=== PATIENT | male | born 1955 | race Caucasian/White ===

== ENCOUNTER 2017-03-23 07:09 | Outpatient (CLI) | payer OTHER ==
[~2017-03-23] VITALS: Ht 172.7 cm; Wt 54.4 kg
[~2017-03-23 07:09] MED LIST: ALLO100T PO; ATEN25TA PO; LISI-538 PO; ONETAB32 PO; PRIL20TA2 PO; SIMV40TA2 PO; VITA100L PO; VITA400C28 PO; ZOCO20TA PO
[2017-03-23] MEDS ORDERED: NS 1,000 ML IV ONE (07:15)
[2017-03-23] MEDS ORDERED: fentaNYL 100 MCG/2 ML INJECTION (J3010) As Ordered ONE (07:54)
[2017-03-23] MEDS ORDERED: LIDOCAINE 2% INJ 100 MG/5 ML SDV (FOR ANES.) As Ordered ONE (08:05)
[2017-03-23] MEDS ORDERED: PROPOFOL 200 MG/20 ML VIAL As Ordered ONE ×2 (08:05→08:27)
--- NOTE | 2017-03-23 08:38 | ROOR ---
Patient Name: Eric Barrios Procedure Date: 03/23/2017 8:06 AM Date of : 1955 Age: 61 Room: [facility] Gender: Male Note Status: Finalized Procedure: Upper GI endoscopy Indications: Suspected gastro-esophageal reflux disease Providers: Dayday Cisneros DO Referring MD: KITTY MONSALVE DO Requesting Provider: Medicines: Propofol per Anesthesia Complications: No immediate complications. Procedure: Pre-Anesthesia Assessment: - Prior to the procedure, a History and Physical was performed, and patient medications and allergies were reviewed. The patient is competent. The risks and benefits of the procedure and the sedation options and risks were discussed with the patient. All questions were answered and informed consent was obtained. Patient identification and proposed procedure were verified by the physician, the nurse, the anesthesiologist and the mold tooling technician in the endoscopy suite. Mental Status Examination: alert and oriented. Airway Examination: normal oropharyngeal airway and neck mobility. Respiratory Examination: clear to auscultation. CV Examination: normal. Prophylactic Antibiotics: The patient does not require prophylactic antibiotics. Prior Anticoagulants: The patient has taken no previous anticoagulant or antiplatelet agents. ASA Grade Assessment: II - A patient with mild systemic disease. After reviewing the risks and benefits, the patient was deemed in satisfactory condition to undergo the procedure. The anesthesia plan was to use monitored anesthesia care (MAC). Immediately prior to administration of medications, the patient was re-assessed for adequacy to receive sedatives. The heart rate, respiratory rate, oxygen saturations, blood pressure, adequacy of pulmonary ventilation, and response to care were monitored throughout the procedure. The physical status of the patient was re-assessed after the procedure. The Endoscope was introduced through the mouth, and advanced to the second part of duodenum. The upper GI endoscopy was accomplished without difficulty. The patient tolerated the procedure well. Findings: Multiple less than 5 mm pedunculated polyps with no bleeding and no stigmata of recent bleeding were found in the gastric body. The polyp was removed with a jumbo cold forceps. Resection and retrieval were complete. Estimated blood loss was minimal. A few 25 mm sessile polyps with no bleeding and no stigmata of recent bleeding were found in the prepyloric region of the stomach. Biopsies were taken with a cold forceps for histology. Estimated blood loss was minimal. Diffuse mild inflammation characterized by congestion (edema) and erythema was found in the prepyloric region of the stomach. Biopsies were taken with a cold forceps for histology. Impression: - Multiple gastric polyps. Resected and retrieved. - A few gastric polyps. Biopsied. - Gastritis. Biopsied. Recommendation: - Patient has a contact number available for emergencies. The signs and symptoms of potential delayed complications were discussed with the patient. Return to normal activities tomorrow. Written discharge instructions were provided to the patient. - Repeat upper endoscopy at appointment to be scheduled for surveillance based on pathology results. - Telephone my office for pathology results in 1 week. Dayday Cisneros DO 03/23/2017 8:38:11 AM This report has been signed electronically. Number of Addenda: 0 Note Initiated On: 03/23/2017 8:06 AM Estimated Blood Loss: Estimated blood loss was minimal.
--- NOTE | 2017-03-23 08:42 | ROOR ---
Patient Name: Eric Barrios Procedure Date: 03/23/2017 8:07 AM Date of : 1955 Age: 61 Room: [facility] Gender: Male Note Status: Finalized Procedure: Colonoscopy Indications: Hematochezia Providers: Dayday Cisneros DO Referring MD: KITTY MONSALVE DO Requesting Provider: Medicines: Propofol per Anesthesia Complications: No immediate complications. Procedure: Pre-Anesthesia Assessment: - Prior to the procedure, a History and Physical was performed, and patient medications and allergies were reviewed. The patient is competent. The risks and benefits of the procedure and the sedation options and risks were discussed with the patient. All questions were answered and informed consent was obtained. Patient identification and proposed procedure were verified by the physician, the nurse, the anesthesiologist and the roof technician in the endoscopy suite. Mental Status Examination: alert and oriented. Airway Examination: normal oropharyngeal airway and neck mobility. Respiratory Examination: clear to auscultation. CV Examination: normal. Prophylactic Antibiotics: The patient does not require prophylactic antibiotics. Prior Anticoagulants: The patient has taken no previous anticoagulant or antiplatelet agents. ASA Grade Assessment: II - A patient with mild systemic disease. After reviewing the risks and benefits, the patient was deemed in satisfactory condition to undergo the procedure. The anesthesia plan was to use monitored anesthesia care (MAC). Immediately prior to administration of medications, the patient was re-assessed for adequacy to receive sedatives. The heart rate, respiratory rate, oxygen saturations, blood pressure, adequacy of pulmonary ventilation, and response to care were monitored throughout the procedure. The physical status of the patient was re-assessed after the procedure. The Colonoscope was introduced through the anus and advanced to the cecum, identified by the appendiceal orifice, ileocecal valve and palpation. The colonoscopy was performed without difficulty. The patient tolerated the procedure well. Findings: The perianal exam findings include non-thrombosed internal hemorrhoids and internal hemorrhoids that prolapse with straining, but spontaneously regress to the resting position (Grade II). A few small-mouthed diverticula were found in the sigmoid colon. The exam was otherwise without abnormality on direct and retroflexion views. Impression: - Non-thrombosed internal hemorrhoids and internal hemorrhoids that prolapse with straining, but spontaneously regress to the resting position (Grade II) found on perianal exam. - Diverticulosis in the sigmoid colon. - The examination was otherwise normal on direct and retroflexion views. - No specimens collected. Recommendation: - Patient has a contact number available for emergencies. The signs and symptoms of potential delayed complications were discussed with the patient. Return to normal activities tomorrow. Written discharge instructions were provided to the patient. - Repeat colonoscopy in 5-10 years for screening purposes. - Return to my office PRN. Dayday Cisneros DO 03/23/2017 8:42:19 AM This report has been signed electronically. Number of Addenda: 0 Note Initiated On: 03/23/2017 8:07 AM Estimated Blood Loss: Estimated blood loss: none.
[2017-03-23 10:00] VITALS: BP 153/85
[2017-04-15] MEDS ORDERED: METO1TAB32 PO (09:07)
[2017-04-15] MEDS ORDERED: SIMV20TA2 PO (09:07)
== END 2017-03-23 10:03 | disposition home or self-care (01) ==
LOC: M OPP 07:09
PROVIDERS: ATTEND Surgery
DX: K62.5 Hemorrhage of anus and rectum (principal); K64.1 Second degree hemorrhoids; K57.30 Diverticulosis of large intestine without perforation or abscess without bleeding; K31.7 Polyp of stomach and duodenum; K29.70 Gastritis, unspecified, without bleeding; R12 Heartburn; K21.9 Gastro-esophageal reflux disease without esophagitis; K40.91 Unilateral inguinal hernia, without obstruction or gangrene, recurrent; R10.13 Epigastric pain; R19.7 Diarrhea, unspecified; I10 Essential (primary) hypertension; E78.5 Hyperlipidemia, unspecified; M10.9 Gout, unspecified; Z87.19 Personal history of other diseases of the digestive system; R06.83 Snoring; E66.9 Obesity, unspecified; Z86.19 Personal history of other infectious and parasitic diseases; Z87.891 Personal history of nicotine dependence; Z79.899 Other long term (current) drug therapy
CPT/HCPCS: 43239; 45378; 88305; 88313; J3010

== ENCOUNTER 2017-04-22 08:42 | Day surgery (SDC) | payer OTHER ==
[~2017-04-22] VITALS: Ht 172.7 cm; Wt 98.0 kg
[~2017-04-22 08:42] MED LIST changes: +LIDOCAINE 2% INJ 100 MG/5 ML SDV (FOR ANES.) As Ordered ONE; +METO1TAB32 PO; +MIDAZOLAM INJ 2 MG/2 ML VIAL (J2250) As Ordered ONE; +PROPOFOL 200 MG/20 ML VIAL As Ordered ONE; +ROCURONIUM BROMIDE 50 MG/5 ML VIAL/SYRINGE As Ordered ONE; +SIMV20TA2 PO; +fentaNYL 100 MCG/2 ML INJECTION (J3010) As Ordered ONE
[2017-04-22] MEDS ORDERED: LR 1,000 ML IV ONE (09:15)
[2017-04-22] MEDS ORDERED: LIDOCAINE 1% MDV 20ML VIAL SQ ONE (09:15)
[2017-04-22 09:26] LABS: MEAN CORPUSCULAR HEMOGLOBIN 33.1 pg (27.0-33.0); MEAN CORPUSCULAR HGB CONC 36.1 g/dl (32.0-36.5); MEAN CORPUSCULAR VOLUME 91.6 fl (80.0-96.0); RED CELL DISTRIBUTION WIDTH 12.8 % (11.5-14.5); WHITE BLOOD COUNT 7.5 K/mm3 (4.0-10.0)
[2017-04-22] MEDS ORDERED: BUPIVACAINE/EPIN 0.25% 30 ML VIAL As Ordered ONE (11:24)
[2017-04-22] MEDS ORDERED: dexameTHASONE 4 MG/ML 1ML VIAL (J1100) As Ordered ONE (11:52)
[2017-04-22] MEDS ORDERED: ePHEDrine SULFATE 25 MG/5 ML(5MG/ML) SYRINGE As Ordered ONE (12:05)
[2017-04-22] MEDS ORDERED: NEOSTIGMINE 1MG/ML 5 ML SYRINGE (J2710) As Ordered ONE ×2 (12:25→14:21)
[2017-04-22] MEDS ORDERED: KETOROLAC 60 MG/2 ML VIAL (J1885) As Ordered ONE ×2 (12:25→14:21)
[2017-04-22] MEDS ORDERED: ONDANSETRON 4MG/2ML VIAL (J2405) As Ordered ONE ×2 (12:25→14:21)
[2017-04-22] MEDS ORDERED: GLYCOPYRROLATE INJ 0.2 MG/ML 2 ML VIAL As Ordered ONE (12:25)
[2017-04-22] MEDS ORDERED: ROCURONIUM BROMIDE 50 MG/5 ML VIAL/SYRINGE As Ordered ONE (12:44)
[2017-04-22] MEDS ORDERED: SUGAMMADEX SODIUM 500 MG/5 ML VIAL (BRIDION) As Ordered ONE (13:22)
[2017-04-22] MEDS: PERCOCET 5MG/325MG TAB PO PRN ×2 (13:35→14:09)
[2017-04-22] MEDS ORDERED: PERCOCET 5MG/325MG TAB As Ordered ONE (13:36)
[2017-04-22] MEDS ORDERED: ONDANSETRON 4MG/2ML VIAL (J2405) IV PRN (13:45)
[2017-04-22] MEDS ORDERED: METOCLOPRAMIDE INJ 10MG/2ML VIAL (J2765) IV PRN (13:45)
[2017-04-22] MEDS ORDERED: fentaNYL 100 MCG/2 ML INJECTION (J3010) IV PRN (13:45)
[2017-04-22] MEDS ORDERED: MORPHINE 2 MG/ML 1ML SYRINGE IV PRN (13:45)
[2017-04-22] MEDS ORDERED: LR 1,000 ML IV SCH (13:45)
[2017-04-22 15:30] VITALS: BP 152/68
--- NOTE | 2017-04-22 16:56 | RO ---
DATE OF PROCEDURE: 04/22/2017 PREOPERATIVE DIAGNOSIS: Right inguinal hernia. POSTOPERATIVE DIAGNOSIS: Right inguinal hernia. PROCEDURE: Robotic-assisted right inguinal hernia repair. SURGEON: Dayday Cisneros DO PHARMACY DATA ANALYST: Nydia Rico ANESTHESIA: General. COMPLICATIONS: None. ESTIMATED BLOOD LOSS: 5 mL INDICATIONS FOR PROCEDURE: The patient is a 61-year-old male presents with right groin pain and a bulge, found to have a right inguinal hernia on physical exam. Recommendation is to proceed with robotic-assisted right inguinal hernia repair. Risks and benefits of the procedure not limited but including bleeding, infection, hernia formation, hernia recurrence, damage to surrounding structures, need for further surgery were discussed in detail with the patient and informed consent was obtained and the procedure was planned. DESCRIPTION OF PROCEDURE: The patient brought back to operating room seven. After sufficient sedation, the abdomen sterilely prepped and draped. Next a time-out was done to confirm proper patient and proper procedure. Following that, an 8 mm incision was made at the umbilicus. Veress needle was inserted and the abdomen was insufflated to 50 mmHg. Next the Veress needle was removed. A 5 mm Optiview port was used to gain access to the abdomen. Once the abdomen was entered, an 8 mm robotic port was placed in the right midabdomen and another 8 mm port on the left. The 5 mm umbilical port was then replaced with an 8 mm robotic camera port. The robot was then docked to the ports. Instruments were inserted along with a camera. The rest of the procedure was completed from the console. The peritoneum was incised superior to the inguinal canal. The anterior and posterior preperitoneal flaps were then created using combination of blunt and sharp dissection. During this process, there was a direct hernia defect that was easily identified. This was carefully reduced along with a large lipoma. Once these were completely reduced, the rest of the peritoneum was dissected free from the cord structures on the inguinal canal. Once the dissection was completed the 2-0 Vicryl suture was used to place two interrupted sutures to close the defect and the direct hernia space. Following that, a Bard 3-D Max light medium size mesh was placed into the preperitoneal space. This was sutured to the pubic symphysis using a #2-0 Vicryl suture. The peritoneum was then closed using a running barbed suture encompassing the hernia sac into the stitch along with closure. Once this was all completed, the abdomen was desufflated, ports were removed. Skin incision closed with #4-0 Vicryl subcutaneous sutures. Abdomen was cleaned and dried. Steri-Strips, 4 x 4 and tape were applied thus ending procedure.
--- NOTE | 2017-04-23 08:11 | ECGEPIP ---
Stationary ECG Study [facility] Test Date: 2017-04-22 Pat Name: ALEXANDRA RICE Department: Room: - Gender: M Environmental Technician: : 1955 Requested By: RICHMOND Ambrosio Order Number: [id number] Reading MD: Quinten Ware Measurements Intervals [place] Rate: 77 P: 38 [place]: 150 QRS: 5 QRSD: 106 T: 39 QT: 357 QTc: 406 Interpretive Statements Normal sinus rhythm Low QRS complex voltage in the limb leads Consider prior inferior infarct Comparison tracing not on file Electronically Signed On 04-23-2017 8:11:14 EDT by Quinten Ware
== END 2017-04-22 15:35 | disposition home or self-care (01) ==
LOC: M SDC 08:42
PROVIDERS: ATTEND Surgery
DX: K40.90 Unilateral inguinal hernia, without obstruction or gangrene, not specified as recurrent (principal); I10 Essential (primary) hypertension; M10.9 Gout, unspecified; K25.4 Chronic or unspecified gastric ulcer with hemorrhage; E78.00 Pure hypercholesterolemia, unspecified; K21.9 Gastro-esophageal reflux disease without esophagitis; Z79.899 Other long term (current) drug therapy; Z87.891 Personal history of nicotine dependence
CPT/HCPCS: 36415; 49650; 85027; 93005; C1781; J0690; J1100; J1885; J2250; J2405; J2710; J3010

== ENCOUNTER 2017-08-17 08:07 | Day surgery (SDC) | payer OTHER ==
[~2017-08-17 08:07] MED LIST changes: +ACETAMINOPHEN 325 MG TAB PO; -ALLO100T PO; -ATEN25TA PO; -LIDOCAINE 2% INJ 100 MG/5 ML SDV (FOR ANES.) As Ordered ONE; -LISI-538 PO; -METO1TAB32 PO; +MIDAZOLAM INJ 2 MG/2 ML VIAL (J2250) As Ordered; -MIDAZOLAM INJ 2 MG/2 ML VIAL (J2250) As Ordered ONE; -ONETAB32 PO; +PHENYLEPHRINE HCL 10 % OPHTH. SOL 5ML OD; -PRIL20TA2 PO; +PROPARACAINE 0.5% OPHTH SOL 15ML OD; -PROPOFOL 200 MG/20 ML VIAL As Ordered ONE; -ROCURONIUM BROMIDE 50 MG/5 ML VIAL/SYRINGE As Ordered ONE; -SIMV20TA2 PO; -SIMV40TA2 PO; -VITA100L PO; -VITA400C28 PO; -ZOCO20TA PO; +fentaNYL 100 MCG/2 ML INJECTION (J3010) As Ordered; -fentaNYL 100 MCG/2 ML INJECTION (J3010) As Ordered ONE
[2017-08-17] MEDS ORDERED: TRIMETHOBENZAMIDE 300 MG CAP PO (08:30)
[2017-08-17] MEDS: PHENYLEPHRINE 2.5% OPHTH SOL 2ML OD (08:54)
[2017-08-17] MEDS: TROPICAMIDE 1% OPHTH SOLN 2ML OD (08:55)
[2017-08-17] MEDS: CYCLOPENTOLATE 2% OPHTH SOLN 2ML BTL OD (08:55)
[2017-08-17] MEDS: OFLOXACIN 0.3 % (OCUFLOX) OPTH SOL 5ML OD (08:56)
[2017-08-17] MEDS: LIDOCAINE 3.5 % 1ML OPHTH TOPICAL GEL OU (08:56)
[2017-08-17] MEDS: HEALON DUET (HEALON 10MG/ML 0.55ML & HEALON ENDOCOAT 30MG/ML 0.85ML) As Ordered (09:38)
[2017-08-17] MEDS: BALANCED SALT IRRIGATION SOLUTION 500ML BAG (FOR OR EYE MACHINE) As Ordered (09:38)
[2017-08-17] MEDS: CEFUROXIME 1MG/0.1ML INTRACAMERAL INJ As Ordered (09:38)
[2017-08-17] MEDS: POVIDONE-IODINE 5% OPHTH PREP SOL 30ML As Ordered (09:38)
[2017-08-17] MEDS: LIDOCAINE 1% SDV 5 ML VIAL As Ordered (09:38)
[2017-08-17] MEDS: ACETYLCHOLINE OPHTH SOLN 1% 2ML (MIOCHOL-E) As Ordered (09:38)
[2017-08-17] MEDS ORDERED: ONDANSETRON 4MG/2ML VIAL (J2405) IV (10:15)
[2017-08-17] MEDS: KETOROLAC 0.5% OPHTH SOLN OD (10:25)
[2017-08-17] MEDS: AcetaZOLAMIDE 500 MG ER CAP PO (10:25)
== END 2017-08-17 10:40 | disposition home or self-care (01) ==
LOC: M SDC 08:07
DX: H25.11 Age-related nuclear cataract, right eye (principal); I10 Essential (primary) hypertension; E78.00 Pure hypercholesterolemia, unspecified; M10.9 Gout, unspecified; K46.9 Unspecified abdominal hernia without obstruction or gangrene; K62.5 Hemorrhage of anus and rectum; K21.9 Gastro-esophageal reflux disease without esophagitis; Z79.899 Other long term (current) drug therapy; Z86.19 Personal history of other infectious and parasitic diseases; Z72.0 Tobacco use
CPT/HCPCS: 66984

== ENCOUNTER 2018-05-24 08:08 | Day surgery (SDC) | payer OTHER ==
[~2018-05-24 08:08] MED LIST changes: -MIDAZOLAM INJ 2 MG/2 ML VIAL (J2250) As Ordered; -PHENYLEPHRINE HCL 10 % OPHTH. SOL 5ML OD; +PHENYLEPHRINE HCL 10 % OPHTH. SOL 5ML OS; -PROPARACAINE 0.5% OPHTH SOL 15ML OD; +PROPARACAINE 0.5% OPHTH SOL 15ML OS; -fentaNYL 100 MCG/2 ML INJECTION (J3010) As Ordered
[2018-05-24] MEDS: CYCLOPENTOLATE 2% OPHTH SOLN 2ML BTL OS (08:44)
[2018-05-24] MEDS: OFLOXACIN 0.3 % (OCUFLOX) OPTH SOL 5ML OS (08:44)
[2018-05-24] MEDS: LIDOCAINE 3.5 % 1ML OPHTH TOPICAL GEL OU (08:44)
[2018-05-24] MEDS: PHENYLEPHRINE 2.5% OPHTH SOL 2ML OS (08:44)
[2018-05-24] MEDS: TROPICAMIDE 1% OPHTH SOLN 2ML OS (08:44)
[2018-05-24] MEDS ORDERED: fentaNYL 100 MCG/2 ML INJECTION (J3010) As Ordered (09:24)
[2018-05-24] MEDS ORDERED: MIDAZOLAM INJ 2 MG/2 ML VIAL (J2250) As Ordered (09:24)
[2018-05-24] MEDS: POVIDONE-IODINE 5% OPHTH PREP SOL 30ML As Ordered (09:46)
[2018-05-24] MEDS: BALANCED SALT IRRIGATION SOLUTION 500ML BAG (FOR OR EYE MACHINE) As Ordered (09:46)
[2018-05-24] MEDS: HEALON DUET (HEALON 10MG/ML 0.55ML & HEALON ENDOCOAT 30MG/ML 0.85ML) As Ordered (09:46)
[2018-05-24] MEDS: LIDOCAINE 1% SDV 5 ML VIAL As Ordered (09:46)
[2018-05-24] MEDS: CEFUROXIME 1MG/0.1ML INTRACAMERAL INJ As Ordered (09:46)
[2018-05-24] MEDS: ACETYLCHOLINE OPHTH SOLN 1% 2ML (MIOCHOL-E) As Ordered (09:56)
[2018-05-24] MEDS: KETOROLAC 0.5% OPHTH SOLN OS (10:13)
[2018-05-24] MEDS ORDERED: TRIMETHOBENZAMIDE 300 MG CAP PO (10:15)
[2018-05-24] MEDS: AcetaZOLAMIDE 500 MG ER CAP PO (10:17)
== END 2018-05-24 10:36 | disposition home or self-care (01) ==
LOC: M SDC 08:08
DX: H25.12 Age-related nuclear cataract, left eye (principal); K21.9 Gastro-esophageal reflux disease without esophagitis; I10 Essential (primary) hypertension; E78.2 Mixed hyperlipidemia; M10.9 Gout, unspecified; Z87.891 Personal history of nicotine dependence; Z79.899 Other long term (current) drug therapy
CPT/HCPCS: 66984

== ENCOUNTER → 2022-02-18 | Outpatient (CLI) | payer BC ==
[~2022-02-18] MED LIST changes: -ACETAMINOPHEN 325 MG TAB PO; +ALLO100T PO; +ATEN25TA PO; +LISI20TA33 PO; +METO1TAB32 PO; +ONETAB32 PO; -PHENYLEPHRINE HCL 10 % OPHTH. SOL 5ML OS; +PRIL20TA2 PO; -PROPARACAINE 0.5% OPHTH SOL 15ML OS; +SIMV20TA22 PO; +SIMV40TA20 PO; +VITA100L PO; +VITA400C28 PO; +ZOCO20TA PO
== END ==
LOC: M WUC 12:59
PROVIDERS: ATTEND Physician Assistant
DX: S62.617A Displaced fracture of proximal phalanx of left little finger, initial encounter for closed fracture (principal); X58.XXXA Exposure to other specified factors, initial encounter; Y92.9 Unspecified place or not applicable; Y93.9 Activity, unspecified; Y99.9 Unspecified external cause status

== ENCOUNTER → 2022-09-28 | Outpatient (CLI) | payer BC ==
[~2022-09-28] MED LIST changes: +SIMV-253 PO; -ZOCO20TA PO
== END ==
LOC: M RAD 11:24
PROVIDERS: ATTEND Family Medicine
DX: E07.9 Disorder of thyroid, unspecified (principal)

== ENCOUNTER → 2022-11-09 | Outpatient (CLI) | payer BC | LOC: M WUC 14:42 | PROVIDERS: ATTEND Nurse Practitioner Family | DX: J06.9 Acute upper respiratory infection, unspecified (principal); R05.9 Cough, unspecified ==

== ENCOUNTER 2022-12-04 13:43 | Emergency (ER) | payer MEDICARE, BC ==
[~2022-12-04] VITALS: Ht 170.2 cm; Wt 99.3 kg
[2022-12-04] MEDS ORDERED: FAMOTIDINE 20MG/2ML VIAL IVP ONE (16:40)
[2022-12-04] MEDS ORDERED: ONDANSETRON 4MG 2ML VIAL IV ONE (16:40)
[2022-12-04] MEDS ORDERED: NS 1,000 ML IV ONE ×2 (16:40)
[2022-12-04 17:36] LABS: BASO % 0.4 % (0.0-1.0); EOS % 0.3 % (0.0-3.0); HEMATOCRIT 42.9 % (42.0-52.0); HEMOGLOBIN 14.9 g/dl (13.5-17.5); LYMPH % 26.4 % (24.0-44.0); MEAN CORPUSCULAR HEMOGLOBIN 31.7 pg (27.0-33.0); MEAN CORPUSCULAR HGB CONC 34.7 g/dl (32.0-36.5); MEAN CORPUSCULAR VOLUME 91.3 fl (80.0-96.0); MONO # 0.7 10^3/uL (0.0-0.8); MONO % 9.5 % (2.0-8.0); NEUTROPHILS # 4.8 10^3/uL (1.5-8.5); PLATELET COUNT, AUTOMATED 216 10^3/uL (150-450); WHITE BLOOD COUNT 7.6 10^3/uL (4.0-10.0)
[2022-12-04 17:56] LABS: INR 0.95; PARTIAL THROMBOPLASTIN TIME 24.9 SECONDS (24.8-34.2); PROTHROMBIN TIME 12.9 SECONDS (12.5-14.5)
[2022-12-04 17:58] LABS: CK-MB VALUE MASS < 1.0 NG/ML (<3.6)
[2022-12-04 17:59] LABS: LIPASE 39 U/L (12-53)
[2022-12-04 18:01] LABS: ALBUMIN 3.8 G/DL (3.2-5.2); ALKALINE PHOSPHATASE 59 U/L (46-116); ALT/SGPT 25 U/L (7.0-40); AST/SGOT 21 U/L (<34); BILIRUBIN,DIRECT 0.3 MG/DL (<0.4); BILIRUBIN,TOTAL 0.9 MG/DL (0.3-1.2); BLOOD UREA NITROGEN 18 MG/DL (9-23); CALCIUM LEVEL 8.7 MG/DL (8.3-10.6); CARBON DIOXIDE LEVEL 30 MMOL/L (20-31); CHLORIDE LEVEL 102 MMOL/L (98-107); CREATININE FOR GFR 0.86 MG/DL (0.70-1.30); GLOMERULAR FILTRATION RATE > 60.0 (>49); GLUCOSE, FASTING 80 MG/DL (74-106); POTASSIUM SERUM 4.1 MMOL/L (3.5-5.1); SODIUM LEVEL 139 MMOL/L (136-145); TOTAL PROTEIN 6.5 G/DL (5.7-8.2)
[2022-12-04 18:03] LABS: FREE T4 1.09 NG/DL (0.89-1.76); THYROID STIMULATING HORMONE 1.864 uIU/ML (0.55-4.78)
[2022-12-04 18:04] LABS: CPK CREATINE PHOSPHOKINASE 94 U/L (46-171); MB/CK RELATIVE INDEX 1.06 (< OR =4)
[2022-12-04] MEDS ORDERED: BENZ200C70 PO (18:48)
[2022-12-04] MEDS ORDERED: ALBU6.7H6 INH (18:48)
[2022-12-04] MEDS ORDERED: PEPC1TAB5 PO (18:48)
[2022-12-04 19:01] VITALS: BP 188/89
== END 2022-12-04 19:08 | disposition home or self-care (01) ==
LOC: M ED 13:43
DX: U07.1 COVID-19 (principal); R07.89 Other chest pain; K29.70 Gastritis, unspecified, without bleeding; I10 Essential (primary) hypertension; Z87.19 Personal history of other diseases of the digestive system; Z87.891 Personal history of nicotine dependence; Z79.899 Other long term (current) drug therapy
CPT/HCPCS: 71046; 80048; 80076; 81001; 82550; 82553; 83690; 84439; 84443; 84484; 85025; 85610; 85730; 87486; 87581; 87633; 87798; 93005; 96374; 96375; 99284; J2405

== ENCOUNTER 2025-03-03 20:35 | Emergency (ER) | payer MEDICARE, BC ==
[~2025-03-03 20:35] MED LIST changes: +ALBU6.7H6 INH; +BENZ200C70 PO; +PEPC1TAB5 PO
[2025-03-03 20:49] VITALS: TEMP 98.2
[2025-03-03 21:19] LABS: BASO # 0.0 10^3/uL (0.0-0.2); BASO % 0.2 % (0.0-1.0); EOS # 0.0 10^3/uL (0.0-0.5); EOS % 0.0 % (0.0-3.0); LYMPH # 0.9 10^3/uL (1.5-5.0); LYMPH % 9.1 % (24.0-44.0); MONO # 0.5 10^3/uL (0.0-0.8); MONO % 4.8 % (2.0-8.0); NEUTROPHILS # 8.5 10^3/uL (1.5-8.5); NEUTROPHILS % 85.6 % (36.0-66.0); PLATELET COUNT, AUTOMATED 209 10^3/uL (150-450)
[2025-03-03 21:43] LABS: ALT/SGPT 26.0 U/L (7.0-40); AST/SGOT 24.0 U/L (<34); CALCIUM LEVEL 9.5 MG/DL (8.3-10.6); CARBON DIOXIDE LEVEL 24.0 MMOL/L (20-31); CHLORIDE LEVEL 103.0 MMOL/L (98-107); CREATININE FOR GFR 1.1 MG/DL (0.70-1.30); GLOMERULAR FILTRATION RATE 73.6 (>49); POTASSIUM SERUM 4.2 MMOL/L (3.5-5.1); SODIUM LEVEL 143.0 MMOL/L (136-145)
[2025-03-03] MEDS: ACETAMINOPHEN 325 MG TAB PO ONE (21:52)
[2025-03-03 21:58] LABS: KETONE, URINE AUTO RFX 1+ mg/dL (NEGATIVE); LEUKOCYTE ESTERASE UR AUTO RFX NEGATIVE (NEGATIVE); MUCUS, URINE RFX LARGE (NEGATIVE); NITRITE, URINE AUTO RFX NEGATIVE (NEGATIVE); RBC, URINE AUTO RFX 0 /HPF (0-3); SQUAM EPITHELIAL CELL UR AURFX 3 /HPF (0-6); WBC, URINE AUTO RFX 4 /HPF (0-3)
[2025-03-03] MEDS ORDERED: ISOVUE-370 76% 100 ML VIAL As Ordered ONE (22:16)
[2025-03-03 22:55] LABS: GC DNA AMPLIFICATION NEGATIVE (NEGATIVE)
[2025-03-04] VITALS: BP 120/72; O2SAT 98
== END 2025-03-04 00:33 | disposition home or self-care (01) ==
LOC: EDBD 20:35 → M ED 20:35
DX: K40.30 Unilateral inguinal hernia, with obstruction, without gangrene, not specified as recurrent (principal); S32.010A Wedge compression fracture of first lumbar vertebra, initial encounter for closed fracture; X58.XXXA Exposure to other specified factors, initial encounter; Y92.9 Unspecified place or not applicable; Y93.9 Activity, unspecified; Y99.9 Unspecified external cause status; I10 Essential (primary) hypertension; K57.32 Diverticulitis of large intestine without perforation or abscess without bleeding; I25.10 Atherosclerotic heart disease of native coronary artery without angina pectoris; Z87.891 Personal history of nicotine dependence; Z79.899 Other long term (current) drug therapy
CPT/HCPCS: 74177; 76870; 80048; 80076; 81001; 83690; 85025; 87810; 87850; 93041; 93976; 99284; Q9967

== ENCOUNTER → 2025-05-06 | Outpatient (REF) | payer MEDICARE, BC ==
[2025-05-06 17:48] LABS: APPEARANCE, URINE HAZY (CLEAR); BACTERIA, URINE AUTO NEGATIVE (NEGATIVE); BILIRUBIN, URINE AUTO NEGATIVE (NEGATIVE); BLOOD, URINE BLOOD NEGATIVE (NEGATIVE); GLUCOSE, URINE (UA) AUTO NEGATIVE (NEGATIVE); KETONE, URINE AUTO NEGATIVE (NEGATIVE); LEUKOCYTE ESTERASE, URINE AUTO NEGATIVE (NEGATIVE); MUCUS, URINE MODERATE (NEGATIVE); NITRITE, URINE AUTO NEGATIVE (NEGATIVE); PROTEIN, URINE AUTO NEGATIVE (NEGATIVE); RBC, URINE AUTO 0 /HPF (0-3); SPECIFIC GRAVITY URINE AUTO 1.027 (1.002-1.035); SQUAMOUS EPITHELIAL CELL UR AU 0 /HPF (0-6); UROBILINOGEN, URINE AUTO 2.0 mg/dL (0.0-2.0); WBC, URINE AUTO 1 /HPF (0-3)
== END ==
LOC: M LAB REF 16:54
PROVIDERS: ATTEND Nurse Practitioner Family
DX: R35.0 Frequency of micturition (principal)

== ENCOUNTER → 2025-05-16 | Outpatient (CLI) | payer MEDICARE, BC | LOC: M WUC 15:14 | PROVIDERS: ATTEND Family Medicine | DX: I10 Essential (primary) hypertension (principal); R39.11 Hesitancy of micturition ==